=== PATIENT | female | born 1940 | race Caucasian/White ===

== ENCOUNTER → 2020-04-14 14:00 | Outpatient (REF) | payer MEDICARE, SELFPAY | LOC: ANHLAB 14:00 | PROVIDERS: PCP Internal Medicine; Visit Provider Nurse Practitioner | DX: C44.712 Basal cell carcinoma of skin of right lower limb, including hip (principal) | CPT/HCPCS: 88305 ==

== ENCOUNTER → 2020-05-25 11:18 | Outpatient (REF) | payer MEDICARE, SELFPAY | LOC: ANHLAB 11:18 | PROVIDERS: PCP Internal Medicine; Visit Provider Nurse Practitioner | DX: C44.712 Basal cell carcinoma of skin of right lower limb, including hip (principal) | CPT/HCPCS: 88305; 88331 ==

== ENCOUNTER 2022-06-06 07:00 | Outpatient (NON) | payer MEDICARE, SELFPAY | END 2022-06-06 07:01 | disposition home or self-care (01) | PROVIDERS: PCP Internal Medicine; Visit Provider Nurse Practitioner | DX: C44.722 Squamous cell carcinoma of skin of right lower limb, including hip (principal) | CPT/HCPCS: 88305 ==

== ENCOUNTER 2022-07-25 15:03 | Outpatient (NON) | payer MEDICARE, SELFPAY | END 2022-07-25 15:04 | disposition home or self-care (01) | LOC: ANHLAB 15:05 | PROVIDERS: PCP Internal Medicine; Visit Provider Nurse Practitioner | DX: C44.712 Basal cell carcinoma of skin of right lower limb, including hip (principal); C44.619 Basal cell carcinoma of skin of left upper limb, including shoulder | CPT/HCPCS: 88305; 88331 ==

== ENCOUNTER 2025-05-02 23:24 | Emergency (ER) | payer MEDICARE, SELFPAY ==
--- NOTE | ~2025-05-02 | XR_ITS ---
EXAMINATION: XR chest 1V portable COMPARISON: No comparisons available. HISTORY: sob FINDINGS: Moderate pulmonary venous congestion. Small basilar infiltrates and effusions. No pneumothorax. Moderate cardiomegaly. Mediastinal and hilar contours are within normal limits. Bony thorax no acute abnormality. Miscellaneous: None Impression: CHF. Superimposed pneumonia Reviewed, dictated and finalized at location A. Impression: CHF. Superimposed pneumonia
--- NOTE | ~2025-05-02 | CT_ITS ---
EXAM: CT chest abdomen pelvis con - 05/03/2025 0:20 CDT HISTORY: 85 years old Female with sepsis/SOB/ABDOMEN PAIN TECHNIQUE: Multidetector CT of the chest, abdomen and pelvis was performed with intravenous contrast Coronal and sagittal reformats were also provided for review. Automatic exposure control was used for this study. CONTRAST: 100 cc of Optiray 350 was used for this study COMPARISON: None available FINDINGS: CHEST: VISUALIZED LOWER NECK: Thyroid gland appears normal. No supraclavicular lymphadenopathy. AIRWAYS: Patent centrally. LUNGS and PLEURA: Mild to moderate bilateral pleural effusions with compressive atelectasis. Patchy groundglass infiltrates. Evidence of old granulomatous disease. MEDIASTINUM and JAMESON: No evidence of mediastinal hematoma. No lymphadenopathy. HEART AND PERICARDIUM: Mild cardiomegaly. No pericardial effusion. CHEST WALL: No axillary lymphadenopathy. Chest wall appears normal. VASCULATURE: Thoracic aorta and pulmonary arteries are normal in caliber. ABDOMEN and PELVIS: LIVER: Hepatomegaly. 1.2 cm hypodensity in the left hepatic lobe may represent a cyst. GALLBLADDER: Postcholecystectomy. BILE DUCTS: Normal caliber. SPLEEN: Within normal limits. PANCREAS: Within normal limits. ADRENAL GLANDS: Diffuse thickening of both adrenal glands may be due to hypertrophy. KIDNEYS and URETERS: No hydronephrosis or hydroureter. No evidence for nephroureterolithiasis. Bilateral renal cysts. URINARY BLADDER: Within normal limits. STOMACH and BOWEL: Colonic diverticulosis, without diverticulitis. Thickening of the rectal wall and some inflammatory changes may be related to underdistention. Proctitis cannot be excluded. Postsurgical changes in the small bowel. REPRODUCTIVE ORGANS: Within normal limits. MESENTERY/PERITONEAL CAVITY: Small amount of free fluid in the pelvis. LYMPH NODES: No abdominal or pelvic lymphadenopathy. ABDOMINAL WALL: Diffuse anasarca VASCULATURE: Within normal limits. MUSCULOSKELETAL, THORACIC AND LUMBAR SPINE: Multilevel degenerative changes of the spine. Status post right hip replacement. IMPRESSION: 1. Mild to moderate bilateral pleural effusions with compressive atelectasis. Patchy groundglass infiltrates. Findings can represent pneumonia in appropriate clinical settings. 2. Thickening of the rectal wall and some inflammatory changes may be related to underdistention. Proctitis cannot be excluded. Clinical correlation is recommended. Reviewed, dictated and finalized at location N. IMPRESSION: 1. Mild to moderate bilateral pleural effusions with compressive atelectasis. Patchy groundglass infiltrates. Findings can represent pneumonia in appropriate clinical settings. 2. Thickening of the rectal wall and some inflammatory changes may be related to underdistention. Proctitis cannot be excluded. Clinical correlation is recom mended.
[2025-05-02 23:24] VITALS: PULSE 82; O2SAT 90
[2025-05-02 23:25] VITALS: BP 111/78; PULSE 34; RESP 16; TEMP 35.7; O2SAT 94
--- NOTE | 2025-05-02 23:27 | ECG_ITS ---
Test Date: 2025-05-02 23:33:37 Measurements Intervals Hansen Rate: 100 P: 0 NJ: 0 QRS: 164 QRSD: 87 T: 153 QT: 355 QTc: 459 Interpretive Statements ATRIAL FIBRILLATION WITH RAPID VENTRICULAR RESPONSE LOW QRS VOLTAGE IN EXTREMITY LEADS [QRS DEFLECTION < 0.5 mV IN LIMB LEADS] LATERAL MYOCARDIAL INFARCTION , OF INDETERMINATE AGE [40+ ms Q WAVE AND/OR ST/T ABNORMALITY IN I/aVL/V5/V6] ABNORMAL ECG No previous ECG available for comparison Electronically Signed On 05-03-2025 12:11:22 CDT by Bora Cabello M.D.
[2025-05-02 23:29] VITALS: PULSE 91; RESP 30
[2025-05-02 23:30] VITALS: BP 111/78; PULSE 88; RESP 32
[2025-05-02 23:31] VITALS: PULSE 104; RESP 27
[2025-05-02 23:45] VITALS: PULSE 111; RESP 30
[2025-05-03] VITALS (7 sets, daily range): BP systolic 104–110; BP diastolic 70–81; PULSE 35–108; RESP 7–34; O2SAT 90–92
[2025-05-03] MEDS: IPRATROPIUM 0.5 MG/ALBUTEROL SULFATE 2.5 MG AMPUL.NEB 3 ML INHALATION (00:14)
[2025-05-03] MEDS: fentaNYL CITRATE INJ (*CRX) 100 MCG/2 ML VIAL 50 MCG IV PUSH (00:18)
[2025-05-03] MEDS: ONDANSETRON INJ 4 MG/2 ML VIAL IV PUSH (00:18)
[2025-05-03 00:21] LABS: HCO3 ABG 40.5 mmol/L (23-29); Oxygen Saturation ABG 86.2 % (95-97); PO2 ABG 52.7 mmHg (75-85)
[2025-05-03 00:24] LABS: Site Drawn RIGHT RADIAL
[2025-05-03 00:25] LABS: Liters per Minute 4.0 LPM; Modified Allen's Test Unable to perform
[2025-05-03 00:27] LABS: Hematocrit 41.2 % (35.0-42.0); Hemoglobin 11.7 g/dL (11.7-13.8); Immature Granulocyte Percent A 1.3 % (0.0-0.0); Immature Platelet Fraction Pct 9.3 % (1.0-7.0); Lymphocytes Absolute Auto 0.74 K/mm3 (1.10-4.50); Mean Corpuscular HGB Conc 28.4 g/dL (32-36); Mean Corpuscular Hemoglobin 27.0 pg (27.0-31.0); Mean Corpuscular Volume 94.9 fL (78.0-102.0); Nucleated Red Blood Cells Absolute Auto 0.13 K/mm3 (0.00-0.00); Nucleated Red Blood Cells Perc 2.4 % (0-0.0); PCO2 ABG 83.4 mmHg (35-45); Platelet Count Result 125 K/mm3 (150-420); Red Blood Count 4.34 M/mm3 (4.20-5.40); White Blood Count 5.4 K/mm3 (4.8-10.8)
[2025-05-03] MEDS: NALOXONE HCL 0.4 MG/ML VIAL IV PUSH (00:36)
[2025-05-03 00:38] LABS: INR 1.1; Prothrombin Time 11.8 Seconds (9.50-12.1)
[2025-05-03] MEDS: EPINEPHrine INJ 1 MG/10 ML SYRINGE XX (00:40)
[2025-05-03 00:45] LABS: Alanine Aminotransferase 30 U/L (6-35); Albumin Level 4.3 g/dL (3.5-5.1); Alkaline Phosphatase 95 U/L (38-126); Anion Gap 11 mmol/L (4-12); Aspartate Amino Transferase 46 U/L (14-36); Bilirubin,Total 0.8 mg/dL (0.2-1.3); Blood Urea Nitrogen 96 mg/dL (7-17); Calcium 10.4 mg/dL (8.4-10.2); Carbon Dioxide 36 mmol/L (22-30); Chloride 92 mmol/L (98-107); Estimated Glomerular Filt Rate 29; Glucose 103 mg/dL (65-110); Osmolality Calculated 317 mOsm/kg (285-295); Potassium 5.8 mmol/L (3.4-5.0); Sodium 139 mmol/L (137-145); Total Protein 7.4 g/dL (6.3-8.2)
--- NOTE | 2025-05-03 00:50 | ED_ITS ---
HPI - General Adult General Chief complaint: Shortness of Breath/Dyspnea Stated complaint: sob Time Seen by Provider: 05/02/25 23:27 Source: EMS Mode of arrival: EMS Limitations: altered mental status History of Present Illness HPI narrative: 85-year-old with a history of atrial fibrillation on Eliquis, breast CA was brought in from senior care with complaints of altered mental status, low oxygen levels in hypertension since this afternoon patient is on 2 L of nasal cannula at baseline she was found to be hypoxic, EMS increased to 4 L upon arrival to the ER she has was 91%. patient was complaining of abdominal pain. No history of vomiting , fever or chills . patient family is bedside not want any intubation or CPR done Onset (ago): day(s) (1) Associated symptoms: shortness of breath Related Data Home Medications ?Medication ?Instructions ?Recorded ?Confirmed ?Last Taken ?Type aspirin 81 mg chewable tablet 81 mg PO DAILY 07/15/19 Unknown History (Reece Chewable Low Dose Aspirin) atorvastatin 40 mg tablet 40 mg PO DAILY 07/15/19 Unk nown History lisinopril 20 mg tablet 20 mg PO DAILY 07/15/19 Unk nown History multivitamin 1 tablet PO DAILY 07/15/19 Unknown History tizanidine 2 mg capsule 2 mg PO QPM PRN 07/15/19 Un known History vit C 226 mg-vit E 90 mg-copper cap PO 07/15/19 Unkno wn History 0.8 mg-zinc oxide-lutein 5 mg capsule (PreserVision Lutein) Allergies Allergy/AdvReac Type Severity Reaction Status Date / Time succinylcholine Allergy Unknown Unknown Verified 05/02/25 23:38 morphine AdvReac Intermediate Unknown Verified 05/03/25 00:09 Review of Systems 2 Constitutional: Constitutional: Reports no additional constitutional complaints Eyes: Eyes: Reports no additional eye complaints ENT: Reports system reviewed and no additional complaints, except as documented Cardiovascular: Cardiovascular: Reports no additional cardiovascular complaints Respiratory: Respiratory: Reports as per HPI Gastrointestinal: Gastrointestinal: Reports as per HPI Musculoskeletal: Musculoskeletal: Reports no additional musculoskeletal complaints Neurologic: Reports system reviewed and no additional complaints, except as documented [facility] Past Medical History Medical History (Updated 05/03/25 @ 01:05 by Anastacio Spencer MD) History of SCC (squamous cell carcinoma) of skin History of basal cell carcinoma (BCC) of skin Surgical History Surgical History History of hip replacement 2004 History of knee replacement 2006 History of heart artery stent Family History Family History Sibling Family history of malignant neoplasm of breast in first degree relative Social History Social History Smoking status: Never smoker Alcohol intake: never Exam 2 Narrative: GENERAL:ill -appearing, well-nourished, and in no acute distress. HEAD: Normocephalic, atraumatic. EYES: PERRLA and EOMI. ENT: Nares clear, no rhinorrhea or epistaxis. Mucous membranes moist. NECK: Supple. CHEST: poor air entry. No respiratory distress. HEART: Regular rate and rhythm. No murmur heard. Normal peripheral pulses. ABDOMEN: Soft, nontender, nondistended, normal active bowel sounds. EXTREMITIES: Normal range of motion. No edema. SKIN: Warm, dry, no rash. NEURO: No focal deficits. Alert and oriented x2 PSYCH: Normal mood and affect. Course Course Emergency Course: pt on arrival was hypoxic , oxygen was up to 4 lts , labs and EKG were ordered , complaining of abdominal pain IV Fentanyl was given , was taken to the CT soon after she came out of the scan she stopped breathing , pts family requested no intubation ,CPR , family and pts were honored . Pt at 0050 Vital Signs Vital signs: Vital Signs Pulse Rate 82 05/02/25 23:24 Pulse Oximetry 90 05/02/25 23:24 Oxygen Delivery Nasal Cannula 05/02/25 23:24 Oxygen Flow Rate 4 05/02/25 23:24 Temperature 35.7 C L 05/02/25 23:25 Pulse Rate 34 L 05/02/25 23:25 Respiratory Rate 16 05/02/25 23:25 Blood Pressure 111/78 05/02/25 23:25 Pulse Oximetry 94 05/02/25 23:25 Oxygen Delivery Nasal Cannula 05/02/25 23:25 Oxygen Flow Rate 4 05/02/25 23:25 Medical Decision Making MDM Narrative Medical decision making narrative: 85 yr old brought in for SOB ,abd pain , H/o Afib and on 4 lts via Nasal canula will do sepsis work up . will start IV zosyn , CXR showed rt lower lobe pneumonia Vital Signs Vital Signs: Vital Signs Pulse Rate 82 05/02/25 23:24 Pulse Oximetry 90 05/02/25 23:24 Oxygen Delivery Nasal Cannula 05/02/25 23:24 Oxygen Flow Rate 4 05/02/25 23:24 Temperature 35.7 C L 05/02/25 23:25 Pulse Rate 34 L 05/02/25 23:25 Respiratory Rate 16 05/02/25 23:25 Blood Pressure 111/78 05/02/25 23:25 Pulse Oximetry 94 05/02/25 23:25 Oxygen Delivery Nasal Cannula 05/02/25 23:25 Oxygen Flow Rate 4 05/02/25 23:25 Lab Data Lab results reviewed: Yes I reviewed the patient's lab results. 05/03/25 00:17 05/03/25 00:17 Labs: Lab Results 05/02/25 05/03/25 Range/Units 23:32 00:17 WBC 5.4 (4.8-10.8) K/mm3 RBC 4.34 (4.20-5.40) M/mm3 Hgb 11.7 (11.7-13.8) g/dL Hct 41.2 (35.0-42.0) % MCV 94.9 (78.0-102.0) fL MCH 27.0 (27.0-31.0) pg MCHC 28.4 L (32-36) g/dL RDW 16.1 H (11.6-14.4) % Plt Count 125 L (150-420) K/mm3 MPV 12.5 H (9.2-11.8) fl Immature Gran % (Auto) 1.3 H (0.0-0.0) % Neut % (Auto) 76.6 H (50.0-70.0) % Lymph % (Auto) 13.6 L (18.0-42.0) % Mcclain % (Auto) 8.1 (2.0-11.0) % Eos % (Auto) 0.2 L (1.0-6.0) % Baso % (Auto) 0.2 (0.0-1.0) % Lymph # (Auto) 0.74 L (1.10-4.50) K/mm3 Mcclain # (Auto) 0.44 (0.10-0.90) K/mm3 Eos # (Auto) 0.01 L (0.02-0.50) K/mm3 Baso # (Auto) 0.01 (0.00-0.10) K/mm3 Abs Immat Gran (auto) 0.07 H (0.00-0.00) K/mm3 Absolute Neuts (auto) 4.16 (1.70-7.20) K/mm3 Absolute Nucleated RBC 0.13 H (0.00-0.00) K/mm3 Nucleated RBC % 2.4 H (0-0.0) % % Immature Plt Fraction 9.3 H (1.0-7.0) % PT 11.8 (9.50-12.1) Seconds INR 1.1 Sodium 139 (137-145) mmol/L Potassium 5.8 H (3.4-5.0) mmol/L Chloride 92 L (98-107) mmol/L Carbon Dioxide 36 H (22-30) mmol/L Anion Gap 11 (4-12) mmol/L BUN 96 H (7-17) mg/dL Creatinine 1.66 H (0.7-1.0) mg/dL Estim Creat Clear Calc Not Reportable Estimated GFR 29 L (59 - ) Glucose 103 (65-110) mg/dL POC Capillary Glucose 132 H (65-105) mg/dl Calculated Osmolality 317 H (285-295) mOsm/kg Lactic Acid 1.4 (0.4-2.0) mmol/L Calcium 10.4 H (8.4-10.2) mg/dL Total Bilirubin 0.8 (0.2-1.3) mg/dL AST 46 H (14-36) U/L ALT 30 (6-35) U/L Alkaline Phosphatase 95 (38-126) U/L Troponin I 0.019 (0.000-0.034) ng/mL NT-Pro-B Natriuret Pep 63412 H (19.9-100) pg/mL Total Protein 7.4 (6.3-8.2) g/dL Albumin 4.3 (3.5-5.1) g/dL ABG Data ABG results: 05/03/25 00:17 Puncture Site Right radial ABG pH 7.30 L ABG pCO2 83.4 H* ABG pO2 52.7 L ABG HCO3 40.5 H ABG O2 Saturation 86.2 L ABG Base Excess 10.9 H Oxyhemoglobin 85.4 L O2 Delivery Device Nasal cannula O2 Liters/Min 4.0 ECG Data EKG #1: ECG completion date: 05/02/25 ECG completion time: 23:23 EKG Interpretation: atrial fibrillation (100), no ectopy, no ST changes and NL axis Discharge Plan Discharge Clinical Impression: Cardiac arrest Respiratory failure Qualifiers: Chronicity: acute Respiratory failure complication: hypoxia and hypercapnia Q ualified Code(s): J96.01 - Acute respiratory failure with hypoxia Patient Disposition: Condition: Patient Language: Yakut Prescriptions: No Action multivitamin Tablet 1 tablet PO DAILY PreserVision Lutein 226 mg-200 unit -5 mg-0.8 mg capsule PO lisinopril 20 mg tablet 20 mg PO DAILY aspirin [Reece Chewable Aspirin] 81 mg tablet,chewable 81 mg PO DAILY atorvastatin 40 mg tablet 40 mg PO DAILY tizanidine 2 mg capsule 2 mg PO QPM PRN Follow-up/Referrals: Afia,Mehul St [Primary Care Provider] Time of Disposition: 01:01
[2025-05-03 00:57] LABS: NT Pro B Type Natriuretic Pept 14300 pg/mL (19.9-100); Troponin I 0.019 ng/mL (0.000-0.034)
--- NOTE | 2025-05-03 01:56 | PC.NURSE ---
00:34-Roberto Carlos called from CT stating that the patient doesn't look right. Upon arrival to CT, patient was agonal breathing, not responding, palplable pulses. This RN began to bag patient and called for ERP and assistance. Patient was moved back over to stretcher. ERP at bedside for evaluation. Patient was given Narcan at 00:39, no response from patient. Continued bagging patient, femoral pulse palpable. 00:39, patient back in room, family at bedside, stated ok to give one round of epi, but patient does not want to be intubated or CPR performed. Pulse lost at 00:40. Epi was given at 00:41, bagging continued per family request, breath sounds auscultated during bagging, as well as chest rise and fall. Spoke with family at bedside, they wish to respect patients wishes and not continue any other supportive care at this time. ERP called patient TOD was called at 00:50. Patient in PEA on monitor, no breath sounds noted, no pulses present on doppler. Family at bedside still at this time. Will continue with expiration assessment.
--- NOTE | 2025-05-05 08:15 | PC.NURSE ---
Spoke with Thea at Dr. Suleiman Magallon's office to notify him of pt's .
--- NOTE | 2025-05-06 12:29 | PC.NURSE ---
preliminary blood cultures x2 reviewed. no growth in 24 hours
--- NOTE | 2025-05-07 12:26 | PC.NURSE ---
PRELIMINARY BLOOD CULTURE NO GROWTH IN 48 HOURS
--- NOTE | 2025-05-10 13:41 | PC.NURSE ---
blood culture, final , no growth
== END 2025-05-03 03:00 | disposition expired ==
PROVIDERS: Emergency Provider Family Medicine; PCP Internal Medicine
DX: I46.9 Cardiac arrest, cause unspecified (principal); J96.01 Acute respiratory failure with hypoxia; I48.91 Unspecified atrial fibrillation; I10 Essential (primary) hypertension; Z85.3 Personal history of malignant neoplasm of breast; Z79.01 Long term (current) use of anticoagulants; Z99.81 Dependence on supplemental oxygen
CPT/HCPCS: 36415; 36600; 71045; 71250; 74176; 80053; 82805; 82948; 83605; 83880; 84484; 85025; 85055; 85610; 93005; 94640; 96374; 96375; 99284; J0168; J2312; J2405; J3010